=== PATIENT | male | born 1975 | race Caucasian/White ===

== ENCOUNTER 2022-04-23 13:10 | Observation (INO) | payer OTHER, SELFPAY ==
[2022-04-23 13:13] VITALS: BP 121/74; PULSE 69; TEMP 36.3; O2SAT 97; BMI 40.6
--- NOTE | 2022-04-23 13:22 | ED_ITS ---
HPI - Chest Pain General: Chief Complaint: Chest Pain Stated Complaint: adbnormal labs Time Seen by Provider: 04/23/22 13:22 History of Present Illness: Mr. Ruelas is a 46-year-old gentleman with history of CAD status post PCI in January 2022 presenting to the emergency department for abnormal EKG. He just had follow-up and establish with new cardiology at [facility] yesterday and had a PCP follow-up today. Patient reports PCP told him his EKG was abnormal and referred him for further evaluation. He does report occasional continued left anterior chest pain with radiation down the arm and shortness of breath. Last significant episode was 2 days ago. When present symptoms are moderate. No other specific changes in health, exacerbating, or alleviating factors identified. Onset (ago): day(s) Timing of current episode: episodic and increasing Prior episodes: Yes Onset: during rest Pain location: substernal Pain radiation: left arm Severity: moderate Relieving factors: nothing Exacerbating factors: exertion Associated symptoms: Reports dyspnea Review of Systems General: Reports: 10 or more systems reviewed and unremarkable except in HPI and below Resp: Reports: dyspnea PFSH ED PFSH: Medical History Abnormal EKG Chest pain Coronary artery disease Diabetes Morbid obesity Surgical History No pertinent past surgical history Family History Other CAD (coronary artery disease) Social History Smoking and tobacco status: never smoked Alcohol intake: never Household members: spouse Housing: House Physical Exam Const: COMMON NORMALS: alert GENERAL APPEARANCE: cooperative and well developed HENMT: COMMON NORMALS: normocephalic and atraumatic HEAD & SCALP: normocephalic and atraumatic Eye: COMMON NORMALS: conjunctivae normal CONJUNCTIVA: Yes conjunctivae normal SCLERA: sclerae normal Neck/C-Spine: COMMON NORMALS: supple GENERAL: Yes trachea midline Resp: COMMON NORMALS: clear to auscultation bilaterally EFFORT & INSPECTION : Yes able to speak in complete sentences AUSCULTATION: clear to auscultation bilaterally Cardio: COMMON NORMALS: regular rate and regular rhythm RATE: regular rate RHYTHM: regular rhythm GI: COMMON NORMALS: Soft to palpation PALPATION: Yes Soft to palpation and No Tenderness to palpation present (GI) Extremity: GENERAL: Yes normal exam except as noted and No edema Neuro: COMMON NORMALS: moves all extremities SENSORIUM/ORIENTATION: Yes alert and No Orientation impaired Psych: COMMON NORMALS: mental status grossly normal and Normal thought process present THOUGHT PROCESS: Normal thought process present Course Vital Signs: Vital signs: Vital Signs Temperature 97.7 F 04/24/22 12:00 Pulse Rate 78 04/24/22 12:00 Respiratory Rate 20 H 04/24/22 12:00 Blood Pressure 143/107 04/24/22 12:00 Pulse Oximetry 95 04/24/22 12:00 Oxygen Delivery Me thod 04/24/22 12:00 MDM - Chest Pain Medical Decision Making 46-year-old gentleman with complex past medical history presenting due to c oncern over EKG abnormality subsequent to PCI as well as increasing intensity chest pain. Exam as above. Patient is nontoxic. Chest pain is not reproducible with palpation on exam. EKG demonstrates sinus rhythm with nonspecific ST segment abnormalities, there are what appear to be pathologic Q waves and interventricular conduction abnormality. No STEMI. Labs with mild hemoconcentration and leukocytosis, no significant metabolic abnormalities to explain symptoms. Negative range 2-hour delta troponin. Chest x-ray with no lobar consolidation or pneumothorax. Patient treated in the emergency department with aspirin. Challenging situation however certainly concerning for unstable angina in a patient with recent cardiac history. Additionally patient's previously seen finishing range operator notes EKG abnormalities outside expected range. After discussion with cardiology patient appropriate for inpatient evaluation. The results of ED evaluation were discussed with the patient including plan for admission due to requirement for level of care not available if discharged to prevent significant worsening/deterioration. Patient agreeable with plan. Discussed with hospitalist service who was agreeable to admit patient. Medical Records I reviewed the patient's medical records. Lab Data I reviewed the patient's lab results. 04/23/22 13:38 04/23/22 13:38 Radiology Impressions Chest X-Ray 04/23/22 13:28 IMPRESSION: No acute findings. Laboratory Results WBC 12.2 10^3/uL (4.0-10.0) H 04/23/22 13:38 RBC 5.38 10^6/uL (4.1-5.3) H 04/23/22 13:38 Hgb 16.1 g/dL (11.7-16.6) 04/23/22 13:38 Hct 48.1 % (42.0-52.0) 04/23/22 13:38 MCV 89.4 fl (80-94) 04/23/22 13:38 MCH 29.9 pg (28.0-34.0) 04/23/22 13:38 MCHC 33.5 g/dL (30.0-36.0) 04/23/22 13:38 RDW 12.9 % (12.1-15.1) 04/23/22 13:38 Plt Count 276 10^3/cmm (130-400) 04/23/22 13:38 MPV 9.3 fL (7.4-10.4) 04/23/22 13:38 Neut % (Auto) 71.3 % 04/23/22 13:38 Lymph % (Auto) 19.6 % 04/23/22 13:38 [place] % (Auto) 7.8 % 04/23/22 13:38 Eos % (Auto) 0.2 % 04/23/22 13:38 Baso % (Auto) 0.4 % 04/23/22 13:38 Neut # (Auto) 8.68 10^3/uL (1.8-7.7) H 04/23/22 13:38 Lymph # (Auto) 2.4 10^3/uL (0.8-4.8) 04/23/22 13:38 [place] # (Auto) 1.0 10^3/uL (0.2-0.9) H 04/23/22 13:38 Eos # (Auto) 0.0 10^3/uL (0.0-0.8) 04/23/22 13:38 Baso # (Auto) 0.1 10^3/uL (0.0-0.1) 04/23/22 13:38 Nucleated RBC % (auto) 0 % 04/23/22 13:38 Nucleated RBCs # 0.0 /100WBC 04/23/22 13:38 D-Dimer <= 0.27 ug/mIFEU (0-0.59) 04/23/22 15:12 Sodium 140 mmol/L (136-145) 04/23/22 15:12 Potassium 4.3 mmol/L (3.5-5.1) 04/23/22 15:12 Chloride 103 mmol/L (98-107) 04/23/22 15:12 Carbon Dioxide 23 mmol/L (22-29) 04/23/22 15:12 Anion Gap 18.3 (5-19) 04/23/22 15:12 BUN 16 mg/dL (6-20) 04/23/22 15:12 Creatinine 1.0 mg/dL (0.7-1.2) 04/23/22 15:12 GFR Calculation 79.8 mL/min (90-130) L 04/23/22 15:12 Glucose 84 mg/dL (65-115) 04/23/22 15:12 Estimat Average Glucose 108 04/23/22 13:38 Hemoglobin A1c 5.4 % (4.0-6.0) 04/23/22 13:38 Calculated Osmolality 290 mOsm/kg (285-295) 04/23/22 15:12 Calcium 9.4 mg/dL (8.5-10.5) 04/23/22 15:12 Total Bilirubin 1.4 mg/dL (0.15-1.2) H 04/23/22 15:12 AST 12 U/L (0-40) 04/23/22 15:12 ALT 14 U/L (0-41) 04/23/22 15:12 Alkaline Phosphatase 89 U/L (40-130) 04/23/22 15:12 Troponin T Baseline 11 ng/L (0-15) 04/23/22 13:38 Troponin T 120 Minute 9.92 ng/L (0-15) 04/23/22 15:12 Delta Troponin T -1.08 ABS# (0-10) L 04/23/22 15:12 NT-Pro-B Natriuret Pep 251 pg/mL (0-125) H 04/23/22 15:12 Total Protein 6.9 g/dL (6.6-8.7) 04/23/22 15:12 Albumin 4.3 g/dL (3.5-5.2) 04/23/22 15:12 Globulin 2.6 g/dL (1.3-4.6) 04/23/22 15:12 Triglycerides 184 mg/dL (0-150) H 04/23/22 15:12 Cholesterol 116 mg/dL (0-200) 04/23/22 15:12 LDL Cholesterol, Calc 46 mg/dL (50-129) L 04/23/22 15:12 HDL Cholesterol 33 mg/dL (60-100) L 04/23/22 15:12 LDL/HDL Ratio 1.39 RATIO (0.00-3.22) 04/23/22 15:12 Cholesterol/HDL Ratio 3.52 mg/dL (1.0-5.00) 04/23/22 15:12 Vitamin B12 448 pg/mL (232-1245) 04/23/22 15:12 Discharge Plan Discharge Patient Disposition: Placed in Observation Admit Provider: Margy Zepeda Clinical Impression: Chest pain, Abnormal EKG Coding Level of Care Code ED Senior Care Assistant for Chg Bridgette
--- NOTE | 2022-04-23 13:28 | XRR_ITS ---
PROCEDURE INFORMATION: Exam: XR Chest Exam date and time: 04/23/2022 1:59 PM Age: 46 years old Clinical indication: Abnormal findings; Abnormal diagnostic tests; Other: Not specified; Prior surgery; Surgery type: Stent; Additional info: Cp TECHNIQUE: Imaging protocol: Radiologic exam of the chest. Views: 1 view. COMPARISON: No relevant prior studies available. FINDINGS: Lungs: Lungs are clear. Pleural spaces: There is no pleural effusion or pneumothorax. Heart/Mediastinum: There is mild enlargement of the cardiac silhouette. Bones/joints: Bones are unremarkable. XR/XR chest 1V portable 50017 IMPRESSION: No acute findings.
--- NOTE | 2022-04-23 13:28 | ECG_ITS ---
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 Measurements Intervals [place] Rate: 73 P: 48 [place]: 209 QRS: 31 QRSD: 98 T: 87 QT: 385 QTc: 426 Interpretive Statements SINUS RHYTHM LOW QRS VOLTAGE IN PRECORDIAL LEADS [QRS DEFLECTION < 1.0 mV IN CHEST LEADS] ANTEROSEPTAL MYOCARDIAL INFARCTION , OF INDETERMINATE AGE No previous ECG available for comparison Electronically Signed On 04-23-2022 20:59:17 RELATIONS SPECIALIST by Marivel Lara M.D. [id number]
[2022-04-23 13:54] LABS: Basophils # 0.1 10^3/uL (0.0-0.1); Basophils % 0.4 %; Eosinophils % 0.2 %; Hematocrit 48.1 % (42.0-52.0); Hemoglobin 16.1 g/dL (11.7-16.6); Lymphocytes # 2.4 10^3/uL (0.8-4.8); Lymphocytes % 19.6 %; Mean Corpuscular HGB Conc 33.5 g/dL (30.0-36.0); Mean Corpuscular Hemoglobin 29.9 pg (28.0-34.0); Mean Corpuscular Volume 89.4 fl (80-94); Mean Platelet Volume 9.3 fL (7.4-10.4); Monocytes % 7.8 %; Neutrophils # 8.68 10^3/uL (1.8-7.7); Neutrophils % 71.3 %; Nucleated Red Blood Cells % 0 %; Platelet Count 276 10^3/cmm (130-400); Red Blood Count 5.38 10^6/uL (4.1-5.3); Red Cell Distribution Width 12.9 % (12.1-15.1); White Blood Count 12.2 10^3/uL (4.0-10.0)
[2022-04-23 14:10] LABS: Troponin(5th) Baseline 11 ng/L (0-15)
[2022-04-23 15:49] LABS: Troponin 5 2HR 9.92 ng/L (0-15)
[2022-04-23 15:53] LABS: Troponin 5 2HR Delta -1.08 ABS# (0-10)
[2022-04-23 15:56] LABS: Alanine Aminotransferase 14 U/L (0-41); Albumin Level 4.3 g/dL (3.5-5.2); Alkaline Phosphatase 89 U/L (40-130); Anion Gap 18.3 (5-19); Aspartate Amino Transferase 12 U/L (0-40); Blood Urea Nitrogen 16 mg/dL (6-20); Calcium 9.4 mg/dL (8.5-10.5); Carbon Dioxide 23 mmol/L (22-29); Chloride 103 mmol/L (98-107); Globulin 2.6 g/dL (1.3-4.6); Glomerular Filtration Rate 79.8 mL/min (90-130); Glucose 84 mg/dL (65-115); NT Pro B Type Natriuretic Pept 251 pg/mL (0-125); Osmolality Calculated 290 mOsm/kg (285-295); Potassium 4.3 mmol/L (3.5-5.1); Sodium 140 mmol/L (136-145); Total Bilirubin 1.4 mg/dL (0.15-1.2); Total Protein 6.9 g/dL (6.6-8.7)
--- NOTE | 2022-04-23 17:22 | P.HP_ITS ---
Providers/Chief Complaint Admitting Physician: Margy Zepeda MD Primary Care Provider: JENNIFER MCCLURE MD Chief Complaint: adbnormal labs History of Present Illness Teo Ruelas is a 46 year old male who was referred from general practitioner clinic because of abnormal EKG changes. Carries history of diabetes, currently on dual antiplatelet therapy. Patient stating that he got a stent placed in January 2022 at [facility] in [place] and since then he has not seen his cycle consultant until [address] Pina he kept the DVD of coronary angiogram and told him that there are some EKG changes however did not recommend any test, patient is stating that he has been having on and off chest discomfort which he would not describe as chest heaviness but it feels achy left anterior axillary line he has not lifted any heavy objects. 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 He has not noticed any nausea, vomiting, diarrhea or sweats. Chest pain would appear randomly last time he was brushing teeth when he started noticing pain left anterior axillary line which only lasted for about 2 to 3 minutes. Data reviewed from [facility] Left heart catheter showed ostial LAD to proximal LAD lesion 90% stenosis severe plaque burden status post stent placement Mid LAD lesion 40% stenosed Left circumflex normal First obtuse marginal normal Second obtuse marginal normal Right coronary artery proximal RCA 30% stenosis Right PDA first right posterolateral branch normal Echo showed EF 50 to 55% no valvular abnormality Patient was given dual antiplatelet therapy high-dose statins and a beta-mia He does not smoke or drink alcohol. Review of Systems Const: Denies: fever(s) Eyes: Denies: change in vision ENMT: Denies: throat pain Card: Reports: chest pain Resp: Denies: dyspnea GI: Denies: abdominal pain : Denies: flank pain Musc: Denies: neck pain Skin/Breast: Denies: rash Neuro: Denies: headache(s) Psych: Reports: anxiety Endo: Denies: polyuria Jaswinder/Lymph: Denies: easy bruising All/Imm: Denies: urticaria Medications/Allergies Home Medications Medication Instructions Recorded Confirmed Last Taken Type aspirin 81 mg chewable tablet 81 mg PO DAILY 04/23/22 04/23/22 04/23/22 History atorvastatin 40 mg tablet 40 mg PO DAILY 04/23/22 04/23/22 04/22/22 History bisoprolol fumarate 5 mg tablet 5 mg PO DAILY 04/23/22 04/23/22 04/23/22 History empagliflozin 10 mg tablet 10 mg PO DAILY 04/23/22 04/23/22 04/23/22 History (Jardiance) glipizide 5 mg tablet, extended 5 mg PO DAILY 04/23/22 04/23/22 04/23/22 History release 24 hr metformin 1,000 mg tablet 1,000 mg PO BID 04/23/22 04/23/22 04/23/22 History ticagrelor 90 mg tablet (Brilinta) 90 mg PO BID 04/23/22 04/23/22 04/23/22 History Allergies Allergy/AdvReac Type Severity Reaction Status Date / Time No Known Allergies Allergy Verified 04/23/22 13:12 PFSH Acute PFSH: Medical History (Updated 04/23/22 @ 18:03 by Fabio Brown MD) Coronary artery disease Morbid obesity Surgical History (Updated 04/23/22 @ 18:03 by Fabio Brown MD) No pertinent past surgical history Family History (Updated 04/23/22 @ 18:03 by Fabio Brown MD) Other CAD (coronary artery disease) Social History (Updated 04/23/22 @ 18:03 by Fabio Brown MD) Smoking and tobacco status: never smoked Alcohol intake: never Substance/Drug Use: never Household members: spouse Housing: House Vitals/I&O/Wt Last Vital Signs Temp 97.3 F L 04/23/22 13:13 Pulse 69 04/23/22 13:13 BP 121/74 04/23/22 13:13 Pulse Ox 97 04/23/22 13:13 O2 Del Method 04/23/22 13:13 Weight last 48 hrs Weight 136.078 kg Physical Exam Narrative: Morbidly obese male No active chest pain Hemodynamically stable Currently on room air at the bedside Pleasant and cooperative Abdomen distended visceral obesity Low 70 no edema S1, S2 No audible stridor or wheezing Data 04/23/22 13:38 04/23/22 15:12 A&P Assessment and plan (1) Chest pain: (2) Abnormal EKG: (3) Diabetes: Plan Unstable angina Requested exercise stress test in the morning N.p.o. after midnight He can have cardiac consistent carb diet for now Carries history of diabetes We will do moderate dose sliding scale hold oral antihyperglycemic agents Check lipid panel and A1c level Continue aspirin and Brilinta No active chest pain DVT prophylaxis covered with Lovenox Morbidly obese might need outpatient sleep study to check pulse ox overnight updated Data reviewed from outside facility Check D-dimer Troponin without significant delta EKG showing T wave inversion lead I aVL upsloping T waves inferior leads Attestations Medical Necessity Statement*: Anticipating discharge within 40 hours Coding Level of Care Code 72749 Diagnoses Chest pain R07.9 Abnormal EKG R94.31 Diabetes E11.9
--- NOTE | 2022-04-23 18:14 | PC.NURSE ---
Report called to Amber TURCIOS
[2022-04-23 18:17] LABS: D Dimer <= 0.27 ug/mIFEU (0-0.59)
--- NOTE | 2022-04-23 18:24 | USCV_ITS ---
Teo Ruelas Age: 46 Gender: M : 1975 Exam Date: 04/23/2022 18:44 Ordering Phys: Fabio Brown MD Technologist: KEERTHI [place] [facility] [place]: chest pain today, history CAD, s/p cardiac stenting January 2022. BP: 121 / 74 HR: 72 Rhythm: Sinus Technical Quality: Fair with OPTISON MEASUREMENTS (Male / Female) Normal Values 2D ECHO LV Diastolic Diameter PLAX 4.0 cm 4.2 - 5.9 / 3.9 - 5.3 cm LV Systolic Diameter PLAX 2.6 cm IVS Diastolic Thickness 1.8 cm 0.6 - 1.0 / 0.6 - 0.9 cm IVS Systolic Thickness 2.7 cm LVPW Diastolic Thickness 1.7 cm 0.6 - 1.0 / 0.6 - 0.9 cm LVPW Systolic Thickness 1.9 cm LVOT Diameter 2.2 cm LV Ejection Fraction 2D Teich 63.6 % LV Ejection Fraction MOD 2C 59.7 % LV Ejection Fraction 2C AL 60.1 % LA Diameter 4.4 cm LA Width 5.2 cm LA Height 7.0 cm RA Width 2.3 cm RA Height 5.4 cm Aorta at Sinotubular Diameter 3.2 cm IVC Diameter 1.7 cm M-MODE Aortic Annulus Diameter 3.5 cm LA Ao Ratio MM 1.3 MV E Point Septal Separation 0.3 cm DOPPLER AV Peak Velocity 118.0 cm/s LVOT Peak Velocity 102.0 cm/s AV Area Cont Eq vti 3.1 cm squared AV Area Cont Eq pk 3.3 cm squared MV Area PHT 3.3 cm squared Mitral E to A Ratio 0.9 MV E' Velocity 40.5 cm/s Mitral E to MV E' Ratio 9.3 Mitral E to LV E' Lateral Ratio 11.3 Mitral E to LV E' Septal Ratio 7.9 TV Peak E Velocity 57.0 cm/s PV Peak Velocity 105.0 cm/s RV Acceleration Time 0.1 s RV Ejection Time 0.4 s RV AcT/ET 0.2 FINDINGS Left Ventricle Normal left ventricular size and systolic function, EF 64 %. No gross wall motion abnormalities noted Right Ventricle Possibly of normal size and ejection fraction Right Atrium Possibly of normal size Left Atrium Possibly of normal size Mitral Valve Mild mitral annular calcification. Aortic Valve No gross abnormalities noted Tricuspid Valve No gross abnormalities noted Pulmonic Valve Trace pulmonary valve regurgitation. Pericardium No pericardial effusion. Aorta Normal aortic annulus size. IVC Normal inferior vena cava. CONCLUSIONS Normal left ventricular size and systolic function, EF 64 %. No gross wall motion abnormalities noted. Mild mitral annular calcification. Trace pulmonary valve regurgitation. No significant pericardial effusion Technically difficult study because of the poor ultrasonic window Dr Atiya Dickinson MD FACC (Electronically Signed) Final Date: 24 April 2022 08:06 S
--- NOTE | 2022-04-23 18:31 | ECG_ITS ---
[facility] Test Date: 2022-04-23 Pat Name: Teo Ruelas Department: Room: 105 Gender: Male Airline Counter Agent: : 1975 Requested By: Kobi Cooper Order Number: [id number] Yessy MD: Marivel Lara M.D. Measurements Intervals [place] Rate: 73 P: 50 [place]: 218 QRS: 34 QRSD: 98 T: 81 QT: 376 QTc: 417 Interpretive Statements SINUS RHYTHM WITH FIRST DEGREE AV BLOCK LOW QRS VOLTAGE IN PRECORDIAL LEADS [QRS DEFLECTION < 1.0 mV IN CHEST LEADS] ANTEROSEPTAL MYOCARDIAL INFARCTION , OF INDETERMINATE AGE [40+ ms Q WAVE IN V1-V4] Compared to ECG 04/23/2022 16:43:41 No significant changes Electronically Signed On 04-23-2022 21:01:32 CORE BLOWER by Marivel Lara M.D. [email or web address] [email or web address].[email or web address] Corporationcrossroads behavioral healthSyndexa Pharmaceuticalsgreene memorial hospital.[employer]/store/[id number]
[2022-04-23 18:35] LABS: Chol HDL Ratio 3.52 mg/dL (1.0-5.00); Cholesterol 116 mg/dL (0-200); HDL Cholesterol 33 mg/dL (60-100); LDL Cholesterol Calculated 46 mg/dL (50-129); LDL HDL Ratio 1.39 RATIO (0.00-3.22); Triglycerides 184 mg/dL (0-150)
[2022-04-23 18:44] VITALS: BP 128/74; PULSE 74; RESP 18; O2SAT 97
[2022-04-23 18:45] LABS: Glucose Point of Care 81 mg/dL (70-110)
[2022-04-23 19:04] LABS: Vitamin B12 448 pg/mL (232-1245)
--- NOTE | 2022-04-23 19:28 | ECG_ITS ---
Test Date: 2022-04-23 Pat Name: Teo Ruelas Department: Room: Gender: Male Assistant Secretary: : 1975 Requested By: Kobi Cooper Order Number: [id number] Yessy MD: Marivel Lara M.D. Measurements Intervals [place] Rate: 64 P: 56 DC: 223 QRS: 34 QRSD: 88 T: 88 QT: 386 QTc: 399 Interpretive Statements SINUS RHYTHM WITH FIRST DEGREE AV BLOCK LOW QRS VOLTAGE IN PRECORDIAL LEADS [QRS DEFLECTION < 1.0 mV IN CHEST LEADS] ANTEROSEPTAL MYOCARDIAL INFARCTION , OF INDETERMINATE AGE [40+ ms Q WAVE IN V1-V4] Compared to ECG 04/23/2022 13:27:08 First degree AV block now present Myocardial infarct finding still present Electronically Signed On 04-23-2022 21:02:21 GLYCERIN SUPERVISOR by Marivel Lara M.D. [email or web address].[email or web address] regional medical centerTeadscleveland clinic medina hospital.Blooie/store/OM/[id number]
[2022-04-23] MEDS: enoxaparin 40 mg/0.4 mL Syringe SUBCUT (19:44)
[2022-04-23 19:45] VITALS: BP 152/94; PULSE 75; RESP 17; TEMP 36.4; O2SAT 94
[2022-04-23] MEDS: ticagrelor 90 mg Tablet PO (19:45)
[2022-04-23 19:54] LABS: Estmated Average Glucose 108; Hemoglobin A1C 5.4 % (4.0-6.0)
[2022-04-23 19:59] VITALS: BMI 40.6
[2022-04-23 20:16] LABS: Troponin 5 6HR 10.81 ng/L (0-15)
[2022-04-23 20:35] LABS: Troponin 5 6HR Delta -0.19 ng/L (0-12)
--- NOTE | 2022-04-23 21:56 | PC.RESP ---
pt on room air placed on cont. pox for overnight study
[2022-04-23 22:00] VITALS: PULSE 68
[2022-04-23 23:22] VITALS: BP 129/61; PULSE 74; RESP 15; TEMP 36.6; O2SAT 95
[2022-04-24 02:50] LABS: Blood Urea Nitrogen 17 mg/dL (6-20); Calcium 9.2 mg/dL (8.5-10.5); Carbon Dioxide 25 mmol/L (22-29); Chloride 102 mmol/L (98-107); Glomerular Filtration Rate 103.2 mL/min (90-130); Glucose 94 mg/dL (65-115); Magnesium 2.1 mg/dL (1.7-2.3); Osmolality Calculated 287 mOsm/kg (285-295); Sodium 138 mmol/L (136-145)
[2022-04-24 03:26] VITALS: BP 117/87; PULSE 85; RESP 15; TEMP 36.6; O2SAT 93
[2022-04-24 03:47] LABS: Anion Gap 14.8 (5-19); Potassium 3.8 mmol/L (3.5-5.1)
--- NOTE | 2022-04-24 06:00 | ECG_ITS ---
[facility] Test Date: 2022-04-24 Pat Name: Teo Ruelas Department: Room: 105 Gender: Male Garbage Depot Worker: Meaghanlucila HernadezDiony : 1975 Requested By: Fabio Brown Order Number: [id number] Yessy MD: Marivel Lara M.D. Interpretive Statements NAME OF STUDY: LEXISCAN SESTAMIBI STRESS TEST INDICATION: Angina PROCEDURE: At the baseline, the blood pressure was 118/86 mm Hg with a heart rate of 70 bpm. The electrocardiogram showed sinus rhythm. Right axis deviation. Probable old anterior infarct. ??? The Lexiscan was infused over a period of 20 seconds. A total of 0.4 milligrams of Lexiscan was infused. The stress phase was continued for a total of 5 minutes. Heart rate at the end of the stress phase was 130 bpm with a blood pressure of 203/85 mm Hg. The EKG at the peak infusion revealed no significant ST-T wave changes. The study was terminated due to protocol completion. ??? Sestamibi was injected 20 seconds after the Lexiscan infusion. ??? Blood pressure at the end of the recovery phase was 124/80 mm Hg with a heart rate of 93 beats per minute. ??? CONCLUSION: 1. No significant EKG changes with the LexiScan infusion. 2. No LexiScan induced chest pain or cardiac arrhythmia. 3. Normal blood pressure and heart rate response. 4. Sestamibi/sestamibi perfusion scan pending; see separate report. SEND RESULTS TO DR. WILKS Electronically Signed On 04-24-2022 11:52:51 SENIOR LINUX SYSTEMS ADMINISTRATOR by Marivel Lara M.D. [email or web address] Pharmaceuticalsprovidence hospitalNimbus Cloud Apps/store/[id number]
[2022-04-24] MEDS: perflutren protein-a microsphr 0.22 mg/mL SDV 3 mL IV (06:09)
[2022-04-24 06:16] VITALS: PULSE 74
[2022-04-24 06:19] LABS: Glucose Point of Care 94 mg/dL (70-110)
[2022-04-24 07:30] VITALS: BP 124/80; PULSE 93
[2022-04-24 08:00] VITALS: BP 123/81; PULSE 78; RESP 18; O2SAT 93
[2022-04-24] MEDS: aspirin 81 mg Chew Tablet PO (09:20)
[2022-04-24] MEDS: ticagrelor 90 mg Tablet PO (09:20)
[2022-04-24] MEDS: atorvastatin 40 mg Tablet PO (09:20)
--- NOTE | 2022-04-24 09:46 | P.MISC_ITS ---
Miscellaneous Note Note: Mr. Ruelas 46-year-old male, was admitted to the hospital for evaluation of abnormal EKG changes which were being related to his previous ME, he did not experience any chest pain, cardiac stress test unremarkable, his echo did not show any wall motion abnormalities, his blood pressure remained stable. 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 Should you have any questions please do not hesitate to call hospitalist department of the [facility].
--- NOTE | 2022-04-24 09:46 | PM.MISC ---
Miscellaneous Note Note: Mr. Ruelas 46-year-old male, was admitted to the hospital for evaluation of abnormal EKG changes which were being related to his previous LA, he did not experience any chest pain, cardiac stress test unremarkable, his echo did not show any wall motion abnormalities, his blood pressure remained stable. 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 Should you have any questions please do not hesitate to call hospitalist department of the [facility].
--- NOTE | 2022-04-24 09:48 | PM.DCS ---
Discharge Providers Date of Admission: 04/23/22 16:53 Date of Discharge: April 24, 2022 Attending Provider at Admission: Margy Zepeda MD Attending Provider at Discharge: Fabio Brown MD Primary Care Provider: JENNIFER MCCLURE MD Diagnoses at Discharge Discharge Diagnosis (1) Chest pain: Status: Acute (2) Abnormal EKG: Status: Acute (3) Diabetes: Status: Acute Reason for Visit Reason for Visit: adbnormal labs Hospital Course Hospital Course 46-year male with stent placed in January in [facility], records were obtained and reviewed, left heart cath showed 90% stenosis LAD mid LAD 40% stenosis, rest of the coronary vessels were normal other than proximal RCA with 30% stenosis, status post stent in LAD, he was admitted for abnormal EKG changes and intermittent chest pain, troponins negative, D-dimer negative, hemoglobin A1c less than 6, lipid panel was reviewed, overnight pulse ox did show sleep apnea spells, at the time of discharge she will get sleep study referral I have recommended discontinue glipizide for now and follow-up with his PCP, cardiac stress test was read by . Treadmill stress test was requested. Patient fariba chest pain-free throughout hospitalization, echo did not show any wall motion abnormality, preserved ejection fraction. 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 Stress test showed old KS with minimal megan-infarct ischemia in setting of negative troponin without active chest pain, will add antianginal medication and discharge patient home and have him follow-up with his specialist wound care. Physical Exam Narrative: Awake and alert Sitting in a chair Awake and alert no active chest pain Hemodynamically stable Abdomen soft Neuro, PERRLA GCS 15 Discharge Data Studies Completed and Pending Completed Studies During Hospitalization Category Date Time Status Sestamibi Stress Test Request Routine Exams 04/24/22 06:00 Draft XR chest 1V portable [id number] Stat Exams 04/23/22 13:28 Completed CV. echo wo/w contrast [id number] Routine Ultrasound 04/23/22 18:24 Completed Pending at discharge Category Date Time Status NM vanda perf SPECT r/s* [id number] Routine Nuc Med 04/24/22 18:24 Ordered Radiology Impressions Chest X-Ray 04/23/22 13:28 IMPRESSION: No acute findings. Laboratory Results WBC 12.2 10^3/uL (4.0-10.0) H 02/15/23 13:38 RBC 5.38 10^6/uL (4.1-5.3) H 04/23/22 13:38 Hgb 16.1 g/dL (11.7-16.6) 04/23/22 13:38 Hct 48.1 % (42.0-52.0) 04/23/22 13:38 MCV 89.4 fl (80-94) 04/23/22 13:38 MCH 29.9 pg (28.0-34.0) 04/23/22 13:38 MCHC 33.5 g/dL (30.0-36.0) 04/23/22 13:38 RDW 12.9 % (12.1-15.1) 04/23/22 13:38 Plt Count 276 10^3/cmm (130-400) 04/23/22 13:38 MPV 9.3 fL (7.4-10.4) 04/23/22 13:38 Neut % (Auto) 71.3 % 04/23/22 13:38 Lymph % (Auto) 19.6 % 04/23/22 13:38 Karnes % (Auto) 7.8 % 04/23/22 13:38 Eos % (Auto) 0.2 % 04/23/22 13:38 Baso % (Auto) 0.4 % 04/23/22 13:38 Neut # (Auto) 8.68 10^3/uL (1.8-7.7) H 04/23/22 13:38 Lymph # (Auto) 2.4 10^3/uL (0.8-4.8) 04/23/22 13:38 Karnes # (Auto) 1.0 10^3/uL (0.2-0.9) H 04/23/22 13:38 Eos # (Auto) 0.0 10^3/uL (0.0-0.8) 04/23/22 13:38 Baso # (Auto) 0.1 10^3/uL (0.0-0.1) 04/23/22 13:38 Nucleated RBC % (auto) 0 % 04/23/22 13:38 Nucleated RBCs # 0.0 /100WBC 04/23/22 13:38 D-Dimer <= 0.27 ug/mIFEU (0-0.59) 04/23/22 15:12 Sodium 138 mmol/L (136-145) 04/24/22 01:54 Potassium 3.8 mmol/L (3.5-5.1) 04/24/22 01:54 Chloride 102 mmol/L (98-107) 04/24/22 01:54 Carbon Dioxide 25 mmol/L (22-29) 04/24/22 01:54 Anion Gap 14.8 (5-19) 04/24/22 01:54 BUN 17 mg/dL (6-20) 04/24/22 01:54 Creatinine 0.8 mg/dL (0.7-1.2) 04/24/22 01:54 GFR Calculation 103.2 mL/min (90-130) 04/24/22 01:54 Glucose 94 mg/dL (65-115) 04/24/22 01:54 POC Glucose 94 mg/dL (70-110) 04/24/22 06:11 Estimat Average Glucose 108 04/23/22 13:38 Hemoglobin A1c 5.4 % (4.0-6.0) 04/23/22 13:38 Calculated Osmolality 287 mOsm/kg (285-295) 04/24/22 01:54 Calcium 9.2 mg/dL (8.5-10.5) 04/24/22 01:54 Magnesium 2.1 mg/dL (1.7-2.3) 04/24/22 01:54 Total Bilirubin 1.4 mg/dL (0.15-1.2) H 04/23/22 15:12 AST 12 U/L (0-40) 04/23/22 15:12 ALT 14 U/L (0-41) 04/23/22 15:12 Alkaline Phosphatase 89 U/L (40-130) 04/23/22 15:12 Troponin T Baseline 11 ng/L (0-15) 04/23/22 13:38 Troponin T 120 Minute 9.92 ng/L (0-15) 04/23/22 15:12 Delta Troponin T -1.08 ABS# (0-10) L 04/23/22 15:12 Troponin T Hi Sens 6Hr 10.81 ng/L (0-15) 04/23/22 19:32 Troponin T Hi Sens 6Hr Delta -0.19 ng/L (0-12) L 04/23/22 19:32 NT-Pro-B Natriuret Pep 251 pg/mL (0-125) H 04/23/22 15:12 Total Protein 6.9 g/dL (6.6-8.7) 04/23/22 15:12 Albumin 4.3 g/dL (3.5-5.2) 04/23/22 15:12 Globulin 2.6 g/dL (1.3-4.6) 04/23/22 15:12 Triglycerides 184 mg/dL (0-150) H 04/23/22 15:12 Cholesterol 116 mg/dL (0-200) 04/23/22 15:12 LDL Cholesterol, Calc 46 mg/dL (50-129) L 04/23/22 15:12 HDL Cholesterol 33 mg/dL (60-100) L 04/23/22 15:12 LDL/HDL Ratio 1.39 RATIO (0.00-3.22) 04/23/22 15:12 Cholesterol/HDL Ratio 3.52 mg/dL (1.0-5.00) 04/23/22 15:12 Vitamin B12 448 pg/mL (232-1245) 04/23/22 15:12 Vitals Last Vital Signs Temp 98 F 04/24/22 03:26 Pulse 78 04/24/22 08:00 Resp 18 04/24/22 08:00 BP 123/81 04/24/22 08:00 Pulse Ox 93 04/24/22 08:00 O2 Del Method 04/24/22 08:00 Discharge Plan Discharge Patient Disposition: Home Condition: Stable Prescriptions: Continued atorvastatin 40 mg tablet 40 mg PO DAILY bisoprolol fumarate 5 mg tablet 5 mg PO DAILY metformin 1,000 mg tablet 1,000 mg PO BID aspirin 81 mg Tablet,Chewable 81 mg PO DAILY Brilinta 90 mg tablet 90 mg PO BID Jardiance 10 mg tablet 10 mg PO DAILY Discontinued glipizide 5 mg tablet extended release 24hr 5 mg PO DAILY Discharge Orders: Discharge Order (Routine); Ordered 04/24/22 Ordered By: Fabio Brown Other Ambulatory Orders: Sleep Study/Titration (Routine) Timeframe: 1 Week Facility: [facility] - Location: [facility] Ordered By: Fabio Brown Referrals: JENNIFER MCCLURE MD [Primary Care Provider] - Patient Instructions: Opioid Safety Discharge Attestations Time Spent in Discharge Care*: less than 30 min Quality Metrics Clinical Quality Measures [ No reported AMI, CVA or VTE this stay] Coding Level of Care Code Acute Code for Chg Fwd Diagnoses Chest pain R07.9 Abnormal EKG R94.31 Diabetes E11.9
--- NOTE | 2022-04-24 10:35 | PC.CHAP ---
Pastoral Care Encounter/Spiritual Assessment Type of Contact [] Declined police radio dispatcher visit [] Patient/Family/Request visit [] Outpatient visit [] Follow-up visit [] Physician referral [] Code/Alert [x] Routine visit [] Staff referral [] Actively dying [] Patient sleeping [] Family support [] [] Out of room [] Palliative care [] [x] Receiving care in room [] Pre-surgical visit [] Trauma [] Long length of stay [] ICU visit [] Other: Relational/Emotional Strength [x] Patient feels connected with others/family/visitors/staff [] Distress [] Loneliness/isolation [] Abandonment Spirituality of Patient [x] Person of Chitra [] Attends Yazidism of their Chitra [x] Believes in Prayer [] Reads Bible or Moravian materials [] There are Spiritual issues to be addressed Exploitation Analyst Interventions [x] Prayer [x] Active listening [x] Non-anxious presence [x] Spiritual/emotional support [] Crisis/trauma care [x] Spiritual counseling [] Bereavement support [] Provided bereavement packet [] Provided Bible/devotional materials [] Provided toy/stuffed animal, coloring book to patient or family member [] Provided Communion [] Anointing/[place] [] Salvation [x] Completed spiritual assessment [] Other: Impact on Illness or Injury [] Angry [] Fearful [] Anxious [] Often cries [] Exhaustion [] Unable to work [] Unable to attend faith [] Unable to walk/stand [] Unable to read [] Unable to drive [] Unable to eat/drink [] Unable to sleep [] Unable to be with family [] Patient intubated [] Other: Summary waiting test results has a good attitude Famiy +1 well go home Time spent with patient 10 mins Pastoral Care Encounter/Spiritual Assessment Type of Contact [] Declined police radio dispatcher visit [] Patient/Family/Request visit [] Outpatient visit [] Follow-up visit [] Physician referral [] Code/Alert [] Routine visit [] Staff referral [] Actively dying [] Patient sleeping [] Family support [] [] Out of room [] Palliative care [] [] Receiving care in room [] Pre-surgical visit [] Trauma [] Long length of stay [] ICU visit [] Other: Relational/Emotional Strength [] Patient feels connected with others/family/visitors/staff [] Distress [] Loneliness/isolation [] Abandonment Spirituality of Patient [] Person of Chitra [] Attends Yazidism of their Chitra [] Believes in Prayer [] Reads Bible or Moravian materials [] There are Spiritual issues to be addressed Exploitation Analyst Interventions [] Prayer [] Active listening [] Non-anxious presence [] Spiritual/emotional support [] Crisis/trauma care [] Spiritual counseling [] Bereavement support [] Provided bereavement packet [] Provided Bible/devotional materials [] Provided toy/stuffed animal, coloring book to patient or family member [] Provided Communion [] Anointing/[place] [] Salvation [] Completed spiritual assessment [] Other: Impact on Illness or Injury [] Angry [] Fearful [] Anxious [] Often cries [] Exhaustion [] Unable to work [] Unable to attend faith [] Unable to walk/stand [] Unable to read [] Unable to drive [] Unable to eat/drink [] Unable to sleep [] Unable to be with family [] Patient intubated [] Other: Summary Time spent with patient
[2022-04-24 11:32] LABS: Glucose Point of Care 115 mg/dL (70-110)
[2022-04-24 12:00] VITALS: BP 143/107; PULSE 78; RESP 20; TEMP 36.5; O2SAT 95
--- NOTE | 2022-04-24 12:13 | PC.NURSE ---
Stress test Exercise Mibi was performed earlier this am. Study was assigned to physician incorrectly as Svetlana. Report should read Exercise Mibi stress test. Dr. Lara notified.
--- NOTE | 2022-04-24 18:24 | NMCV_ITS ---
NM vanda perf SPECT r/s* [id number] Jessenia Teo Age: 46 Gender: M : 1975 Exam Date: 04/24/2022 06:45 Ordering Phys: Fabio Brown MD Technologist: ARNULFO Arguelles Exam Location: [facility] Indications: CHEST PAIN STRESS TEST Please see separate stress test report in [facility] for full findings IMAGE PROTOCOL Rest/Stress 1 Exercise Day Radiopharmaceutical Dose (mCi) Administration Site Administered by Rest: Tc-99m 11.0 IV ARNULFO Lacy Sestamibi Stress:Tc-99m 33.0 IV ARNULFO Lacy Sestamibi Rest: 24-Apr-2022 60 Discovery 630 Stress: 24-Apr-2022 30 Discovery 630 Radiopharmaceutical was injected at 87 % maximum heart rate. Images obtained in supine and prone position. SPECT RESULTS Technical Quality: Excellent Raw Data Analysis: Normal Image Corrections: No attenuation or motion correction applied Summed Stress Score: 12 Summed Rest Score: 11 Summed Difference Score: 3 PERFUSION FINDINGS Medium sized perfusion abnormality of moderate severity of mid to apical anterior, mid anteroseptal, apical septal, apical inferiror and apical perla on rest images with subtle reversibility in mid anterior and mid inferior perla in stress images. FUNCTIONAL RESULTS (calculated via Gated SPECT) Stress Image LV EF (%): 45 Stress EDV (mL):155 TID: 0.97 Stress ESV (mL):86 FUNCTIONAL FINDINGS: The left ventricle is normal in size. Transient Ischemia Dilatation of 0.97. The left ventricular ejection fraction is mildly reduced with a value of 45%. There is hypokinesis of apical inferior, apical anterior and apical perla. IMPRESSIONS 1. Medium sized perfusion abnormality of moderate severity of mid to apical anterior, mid anteroseptal, apical septal, apical inferiror and apical perla with subtle reversibility in mid anterior and mid inferior perla. 2. 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 3. The left ventricular ejection fraction is mildly reduced with a value of 45%. 4. There is hypokinesis of apical inferior, apical anterior and apical perla. 5. EKG portion of the study will be reported separately. Marivel Lara MD (Electronically Signed) Final Date: 24 April 2022 11:46 S
== END 2022-04-24 13:30 | disposition home or self-care (01) ==
LOC: ER 16:53 → CSU 17:21
PROVIDERS: Admitting Provider Internal Medicine; Emergency Provider Emergency Medicine; PCP Family Medicine; Visit Provider Internal Medicine
DX: R07.9 Chest pain, unspecified (principal); R94.31 Abnormal electrocardiogram [ECG] [EKG]; E11.9 Type 2 diabetes mellitus without complications; I25.112 Atherosclerotic heart disease of native coronary artery with refractory angina pectoris; Z79.82 Long term (current) use of aspirin; E66.01 Morbid (severe) obesity due to excess calories; Z68.41 Body mass index [BMI] 40.0-44.9, adult; Z82.49 Family history of ischemic heart disease and other diseases of the circulatory system; G47.34 Idiopathic sleep related nonobstructive alveolar hypoventilation; I25.2 Old myocardial infarction
CPT/HCPCS: 36415; 36416; 71045; 78452; 80048; 80053; 80061; 82607; 82962; 83036; 83735; 83880; 84484; 85025; 85378; 93005; 93017; 96372; 96374; 99285; A9500; C8929; G0378; J1650; Q9956

== ENCOUNTER → 2022-11-24 14:02 | Outpatient (BNVA) | payer OTHER, SELFPAY | PROVIDERS: PCP Family Medicine; Visit Provider Family Medicine | DX: R06.02 Shortness of breath (principal) | CPT/HCPCS: 71046 ==

== ENCOUNTER → 2022-12-22 11:23 | Outpatient (BNVA) | payer OTHER, SELFPAY | PROVIDERS: PCP Family Medicine; Referring Provider Family Medicine; Visit Provider Internal Medicine Cardiovascular Disease | DX: R07.9 Chest pain, unspecified (principal) | CPT/HCPCS: 93005 ==